=== PATIENT | female | born 1950 | race Two or more races ===

== ENCOUNTER 2017-07-17 11:36 | Outpatient (CLI) | payer OTHER | END 2017-07-17 16:57 | disposition home or self-care (01) | LOC: NUCLEAR 11:36 | DX: M81.0 Age-related osteoporosis without current pathological fracture (principal); Z78.0 Asymptomatic menopausal state; Z78.9 Other specified health status; E55.9 Vitamin D deficiency, unspecified; N95.1 Menopausal and female climacteric states ==

== ENCOUNTER 2017-11-07 14:54 | Outpatient (CLI) | payer OTHER | END 2017-11-07 15:06 | disposition home or self-care (01) | LOC: MAMO-SONO 14:54 | DX: Z12.31 Encounter for screening mammogram for malignant neoplasm of breast (principal); Z87.898 Personal history of other specified conditions; N60.11 Diffuse cystic mastopathy of right breast; N60.12 Diffuse cystic mastopathy of left breast; N64.4 Mastodynia; Z78.0 Asymptomatic menopausal state; Z78.9 Other specified health status; N95.1 Menopausal and female climacteric states; R92.2 Inconclusive mammogram ==

== ENCOUNTER 2018-05-25 14:42 | Outpatient (CLI) | payer OTHER | END 2018-05-25 14:55 | disposition home or self-care (01) | LOC: SONOGRAMA 14:42 | DX: N30.20 Other chronic cystitis without hematuria (principal); N20.0 Calculus of kidney ==

== ENCOUNTER 2018-12-14 09:00 | Outpatient (CLI) | payer OTHER | END 2018-12-14 10:00 | disposition home or self-care (01) | LOC: MAMO-SONO 09:00 | DX: Z12.31 Encounter for screening mammogram for malignant neoplasm of breast (principal); Z87.898 Personal history of other specified conditions; Z78.0 Asymptomatic menopausal state; Z78.9 Other specified health status; N60.19 Diffuse cystic mastopathy of unspecified breast; N64.4 Mastodynia; N63.10 Unspecified lump in the right breast, unspecified quadrant; N63.20 Unspecified lump in the left breast, unspecified quadrant ==

== ENCOUNTER 2019-07-22 11:00 | Outpatient (CLI) | payer OTHER | END 2019-07-22 11:10 | disposition home or self-care (01) | LOC: NUCLEAR 11:00 | PROVIDERS: ATTEND Obstetrics & Gynecology Gynecology | DX: M81.0 Age-related osteoporosis without current pathological fracture (principal); N95.1 Menopausal and female climacteric states; Z13.820 Encounter for screening for osteoporosis ==

== ENCOUNTER 2020-08-17 08:29 | Outpatient (CLI) | payer OTHER | END 2020-08-17 08:50 | disposition home or self-care (01) | LOC: MAMO-SONO 08:29 | PROVIDERS: ATTEND Obstetrics & Gynecology Gynecology | DX: N60.11 Diffuse cystic mastopathy of right breast (principal); N60.12 Diffuse cystic mastopathy of left breast; N64.4 Mastodynia; R92.8 Other abnormal and inconclusive findings on diagnostic imaging of breast; Z12.31 Encounter for screening mammogram for malignant neoplasm of breast ==

== ENCOUNTER 2021-08-22 10:29 | Outpatient (CLI) | payer OTHER | END 2021-08-22 10:40 | disposition home or self-care (01) | LOC: MAMO-SONO 10:29 | PROVIDERS: ATTEND Obstetrics & Gynecology Gynecology | DX: Z78.0 Asymptomatic menopausal state (principal); R92.2 Inconclusive mammogram; Z80.3 Family history of malignant neoplasm of breast ==

== ENCOUNTER 2021-09-20 09:19 | Outpatient (CLI) | payer OTHER | END 2021-09-20 09:22 | disposition home or self-care (01) | LOC: NUCLEAR 09:19 | PROVIDERS: ATTEND Obstetrics & Gynecology Gynecology | DX: M81.0 Age-related osteoporosis without current pathological fracture (principal); M85.80 Other specified disorders of bone density and structure, unspecified site ==

== ENCOUNTER 2023-12-04 08:57 | Outpatient (CLI) | payer OTHER | END 2023-12-04 09:14 | disposition home or self-care (01) | LOC: MAMO-SONO 08:57 | PROVIDERS: ATTEND Obstetrics & Gynecology Gynecology | DX: N60.19 Diffuse cystic mastopathy of unspecified breast (principal); N64.4 Mastodynia; N63.0 Unspecified lump in unspecified breast; Z12.31 Encounter for screening mammogram for malignant neoplasm of breast; Z80.3 Family history of malignant neoplasm of breast; Z78.0 Asymptomatic menopausal state ==

== ENCOUNTER 2023-12-18 12:46 | Outpatient (CLI) | payer OTHER | END 2023-12-18 12:47 | disposition home or self-care (01) | LOC: NUCLEAR 12:46 | PROVIDERS: ATTEND Obstetrics & Gynecology Gynecology | DX: M81.0 Age-related osteoporosis without current pathological fracture (principal); M85.80 Other specified disorders of bone density and structure, unspecified site ==